=== PATIENT | female | born 1960 | race Caucasian/White ===

== ENCOUNTER → 2017-04-05 | Outpatient (CLI) | payer MEDICARE, MEDICAID ==
[~2017-04-05] MED LIST: ALLOPURINOL1 POW; ALLOPURINOL100 MG PO; AMITRIPTYLINE10 M1 PO; BACTROBAN2% TP; BAYER ASPIRIN C81 MG PO; BENZONATATE100 MG PO; CIPRO 500MG TA500 MG PO; COLCHICINE0.6 MG PO; DIFLUCAN150 MG PO; DORYX100 MG PO; GLYBURIDE2.5 MG PO; HYDROCODONE-APA1 TA1 PO; INDOCIN SR 75MG75 MG OR; ISOSORBIDE MONO30 MG PO; KEFLEX 500MG.500 MG PO; LEVOTHYROXIN0.125 MG PO; LISINOPRIL10 MG PO; LODINE200 MG PO; LODINE400 MG PO; LORATADINE 10MG10 M1 PO; LORTAB 5/500 501 TAB PO; LORTAB 500 MG-71 TAB PO; MEDROL 4MG. DOSE4 MG PO; METFORMIN ER500 MG PO; METFORMIN500 MG PO; METOPROLOL SUCC50 M1 PO; METOPROLOL50 MG PO; MYCOSTATIN100000 U/G TP; NITROLINGU14.5 GM/BO OR; OMEPRAZOLE20 MG PO; PANTOPRAZOLE SO40 MG PO; PLAVIX 75MG TAB75 MG PO; PLAVIX75 MG PO; PRILOSEC20 MG PO; RESTORIL 30MG C30 MG PO; SEPTRA DS 800 M1 TAB PO; SIMVASTATIN20 MG PO; TRAMADOL 50MG T50 MG PO; VICODIN 5/500 T1 TAB PO; VISTARIL50 MG PO; VITAMIN D50000 I1 PO
--- NOTE | 2017-04-05 14:17 | CARDIOVASCULAR REPORT ---
"Cerebrovascular Exam Indications: 434.91 Cerebral artery occlusion unspecified with cerebral infarction. 433.10 Occlusion/stenosis of carotid artery without cerebral infarction. IMPRESSIONS 1. The bilateral vertebral arteries are patent with normal antegrade flow. 2. Study suggests 70-99% stenosis involving the right internal carotid artery and the left internal carotid artery. 3. Consider CT angiography for further evaluation History: Risk factors: Current tobacco use. Hypertension. Diabetes mellitus. Hyperlipidemia. Labs, prior tests, procedures, and surgery: Right endarterectomy. Labs, prior tests, procedures, and surgery: Right endarterectomy. Carotid duplex study. Complete study and Doppler flow study including spectral analysis, color and pena scale imaging. Location: Vascular laboratory. Patient status: Outpatient. CRITICAL FINDINGS - Reported to: Aliya MENON - Read back and verified. - 04/05/17 - 1415 - 70-99 BILAT Tables: Arterial flow: + +--------+--------+ |Location |V sys |V ed | + +--------+--------+ |Right CCA - proximal|41.6cm/s|20.4cm/s| + +--------+--------+ |Right CCA - distal |57.4cm/s|30.6cm/s| + +--------+--------+ |Right ECA |52.6cm/s|--------| + +--------+--------+ |Right ICA - proximal|292cm/s |126cm/s | + +--------+--------+ |Right ICA - mid |212cm/s |94.3cm/s| + +--------+--------+ |Right ICA - distal |135cm/s |58.1cm/s| + +--------+--------+ |Right vertebral |33.8cm/s|--------| + +--------+--------+ |Left CCA - proximal |59cm/s |21cm/s | + +--------+--------+ |Left CCA - distal |70.6cm/s|27.6cm/s| + +--------+--------+ |Left ECA |80cm/s |--------| + +--------+--------+ |Left ICA - proximal |528cm/s |262cm/s | + +--------+--------+ |Left ICA - mid |277cm/s |107cm/s | + +--------+--------+ |Left ICA - distal |102cm/s |37.9cm/s| + +--------+--------+ |Left vertebral |44.9cm/s|--------| + +--------+--------+ Velocity ratios: + + + + + + | |Right, V sys|Right, V ed|Left, V sys|Left, V ed| + + + + + + |Max ICA/dist CCA|5.09 |4.12 |7.48 |9.49 | + + + + + + (Report amended ) Electronically signed by: Dylon Chirinos [id number]"
--- NOTE | 2017-04-05 14:32 | CARDIOVASCULAR REPORT ---
"Arterial Exam IMPRESSIONS Study suggests moderate, medium-sized stenosis involving the left femoral artery Left lower extremity arterial duplex. Duplex scan and ankle-brachial indices. Height: Height: 162.6cm. Height: 64in. Weight: Weight: 63.5kg. Weight: 139.7lb. Body mass index: BMI: 24kg/m^2. Body surface area: BSA: 1.7m^2. Location: Vascular laboratory. Patient status: Outpatient. Tables: Arterial flow: + +--------+--------+ + |Location |V sys |V ed |Flow analysis| + +--------+--------+ + |Left common femoral |52.9cm/s|--------|Monophasic | + +--------+--------+ + |Left femoral - proximal |33.1cm/s|--------|Monophasic | + +--------+--------+ + |Left deep femoral - proximal |104cm/s |--------|Monophasic | + +--------+--------+ + |Left femoral - mid |61.8cm/s|--------|Monophasic | + +--------+--------+ + |Left femoral - distal |25.4cm/s|--------|Monophasic | + +--------+--------+ + |Left popliteal - proximal |86.4cm/s|14.7cm/s|Monophasic | + +--------+--------+ + |Left popliteal - distal |--------|--------| | + +--------+--------+ + |Left posterior tibial - proximal|17.6cm/s|--------|Monophasic | + +--------+--------+ + |Left posterior tibial - mid |17.3cm/s|5.3cm/s |Monophasic | + +--------+--------+ + |Left posterior tibial - distal |20.6cm/s|5.9cm/s |Monophasic | + +--------+--------+ + |Left peroneal - proximal |10.1cm/s|--------|Monophasic | + +--------+--------+ + |Left peroneal - mid |11cm/s |4cm/s |Monophasic | + +--------+--------+ + ISELA and Stress table: +--------+ |Stage | +--------+ |Baseline| +--------+ (Report amended ) Electronically signed by: Dylon Chirinos [id number]"
--- NOTE | 2017-04-05 16:26 | RADIOLOGY REPORT PS360 ---
ARTERIAL/OHN-PABFERKERQK-WEL PAD peripheral vascular disease, leg pain, claudication, smoker, ORDERING PHYSICIAN: DARRELL Gibson PATIENT AGE: 56 years TECHNIQUE: Segmental pressures obtained of both right and left leg. These are compared to brachial blood pressure to yield index at each level sampled including summary ISELA. The data sheets from the procedure are available in PACS FINDINGS Rest study only performed today No prior studies available for comparison. Blood pressures reported are in millimeters mercury. RIGHT LEG ISELA =1.1. Brachial BP: 122 Thigh BP: 144 Calf BP: 123 Ankle PT: 136 Ankle DP : 126 Digit =123 LEFT LEG ISELA = 0.7 Brachial BPD: 129 Thigh BP: 150 Calf BP: 105 Ankle PT:90 Ankle DP: 93 Digit = 59 Pulses and waveforms: Diminished IMPRESSION: Slightly low ISELA on the left with diminished waveforms and pulses consistent with mild atherosclerotic vascular disease
== END ==
LOC: RT 04-04 14:30
DX: I73.9 Peripheral vascular disease, unspecified (principal); R09.89 Other specified symptoms and signs involving the circulatory and respiratory systems; I25.10 Atherosclerotic heart disease of native coronary artery without angina pectoris; M79.672 Pain in left foot

== ENCOUNTER → 2017-05-11 | Outpatient (CLI) | payer MEDICARE, MEDICAID ==
--- NOTE | 2017-05-11 11:32 | RADIOLOGY REPORT PS360 ---
CARDIOLITE SPECT MYOCARDIAL PERFUSION SCAN, REST AND STRESS: EXERCISE STRESS [facility] REVIEW QGS EF AND WALL MOTION EVALUATION: QPS - PERFUSION EVALUATION HISTORY: DYSPNEA DOSE: 11.10 mCi technetium 99m mibi intravenously at rest followed by 32.5 mCi technetium 99m mibi following the intravenous ministration of 0.4 mg of Lexiscan. Resting blood pressure is 121/73. Stress blood pressure 116/66. FINDINGS: Ejection fraction is calculated to be 55% Stress images reveal severely decreased activity throughout the inferior wall a large portion of the lateral wall and a portion of the apex and septum. Rest images reveal normal activity in the lateral wall improved activity in the inferior wall and normal activity in the septum and apex. Gated images calculated ejection fraction of 55% with apical hypokinesis inferior hypokinesis. IMPRESSION: This is a high risk abnormal Myoview suggesting multivessel coronary artery disease. Previous nontransmural myocardial infarction involving the inferior wall with a large degree of reversible ischemia. Reversible ischemia throughout the inferior wall. Reversible ischemia through portion of the septum and apex. Regional wall motion abnormalities with preserved ejection fraction.
--- NOTE | 2017-05-11 11:32 | RADIOLOGY REPORT PS360 ---
CARDIOLITE SPECT MYOCARDIAL PERFUSION SCAN, REST AND STRESS: EXERCISE STRESS [facility] REVIEW QGS EF AND WALL MOTION EVALUATION: QPS - PERFUSION EVALUATION HISTORY: DYSPNEA DOSE: 11.10 mCi technetium 99m mibi intravenously at rest followed by 32.5 mCi technetium 99m mibi following the intravenous ministration of 0.4 mg of Lexiscan. Resting blood pressure is 121/73. Stress blood pressure 116/66. FINDINGS: Ejection fraction is calculated to be 55% Stress images reveal severely decreased activity throughout the inferior wall a large portion of the lateral wall and a portion of the apex and septum. Rest images reveal normal activity in the lateral wall improved activity in the inferior wall and normal activity in the septum and apex. Gated images calculated ejection fraction of 55% with apical hypokinesis inferior hypokinesis. IMPRESSION: This is a high risk abnormal Myoview suggesting multivessel coronary artery disease. Previous nontransmural myocardial infarction involving the inferior wall with a large degree of reversible ischemia. Reversible ischemia throughout the inferior wall. Reversible ischemia through portion of the septum and apex. Regional wall motion abnormalities with preserved ejection fraction.
== END ==
LOC: RAD 06:30
DX: R06.00 Dyspnea, unspecified (principal); I25.10 Atherosclerotic heart disease of native coronary artery without angina pectoris
CPT/HCPCS: A9502; J2785

== ENCOUNTER → 2017-05-18 | Outpatient (CLI) | payer MEDICARE, MEDICAID ==
[2017-05-18 12:54] LABS: LYMPH # 1.8 K/mm3 (0.7-4.5)
[2017-05-18 12:56] LABS: HEMOGLOBIN 12.9 g/dL (12.2-16.2)
[2017-05-18 14:48] LABS: BUN 9 mg/dL (7-18)
[2017-05-18 14:58] LABS: GFR (ESTIMATED) 74 ML/MIN (59-)
== END ==
LOC: LAB 12:03
PROVIDERS: Physician Assistant
DX: I25.10 Atherosclerotic heart disease of native coronary artery without angina pectoris (principal); R00.0 Tachycardia, unspecified; R06.00 Dyspnea, unspecified; R53.83 Other fatigue